=== PATIENT | male | born 1940 | race Caucasian/White ===

== ENCOUNTER 2025-04-12 16:55 | Outpatient (REF) | payer MEDICAID, SELFPAY ==
--- OUTSIDE RECORDS SUMMARY | 2025-04-12 16:59 | XMS_ITS | Encounter Summary ---
Author Organization [employer] s tem Address [facility] [place]-[id number] [address] [place] [address] Care Team Providers Care V Belt Skiver Name Role Phone Unavailable Primary Care Provider Unavailabl e Encounter Details Date Type Department Care Team (Late st Contact Info) Description 04/15/2023 Orders Only [facility] - Medical Oncology [address] [place] [phone] Ref Prov, [place] [address] Social History Tobacco Use Types Packs/Day Years Used Date Smoking Tobacco: Former Cigarettes 2.5 25 1 977 - 2002 Smokeless Tobacco: Never Comments:quite 19 years ago Alcohol Use Standard Drinks/Week Comments Yes 3 (1 standard drink = 0.6 oz pur e alcohol) AUDIT-C Answer Date Recorded Q1: How often do you have a drink containing alc ohol? Monthly or less 03/31/2023 Q2: How many drinks containi ng alcohol do you have on a typical day when you are drinking? 1 or 2 03/31/2023 Q3: How often do you have si x or more drinks on one occasion? Never 03/31/2023 PHQ-2 Answer Date Recorded Total Score 0 03/31/2023 Housing Instability Answer Date Recorde d Are you worried or concerned that in the next two months you may not have stable housing that you own, rent or stay in as a part of a household? No 02/28/2023 Childcare Answer Date Recorded Childcare Unknown 03/31/2019 Employment Answer Date Recorded Employment Unknown 03/31/2019 Hunger Screening Answer Date Recorded Within the past 12 months we worried whether our food would run out before we got money to buy more. Never True 03/30/2023 Within the past 12 months th e food we bought just didn't last and we didn't have money to get more. Never True 03/30/2023 Purpose - Life Answer Date Recorded Purpose and direction in life Unknown Sex and Gender Information Value Date Recorded Sex Assigned at Not on file Legal Sex Male 11:25 AM EDT Gender Identity Not on file Sexual Orientation Not on file documented as of this encounter Plan of Treatment Not on file documented as of this encounter Goals Goal Patient Goal Type Associated Problems Recent Progress Patient-Stated? Author SNF General Yes Aileen Lazaro, ALRON Note: Evaluation of progress towards goal: Patient plans to return to [facility] in [place] documented as of this encounter Procedures Procedure Name Priority Date/Time Associated Diagnosis Comments EXTERNAL LAB ORDERS / RESULTS Routine 04/15/2023 documented in this encounter Results * External Lab Orders / Results (04/15/2023) us Not In System Ref Prov LAB ORDERABLES Final Res ult documented in this encounter Visit Diagnoses Not on filedocumented in this encounter Additional Health Concerns Assessment Noted Time PHQ-9 Depression Total Score: 0 03/31/20 23 12:14 PM EDT A Body Mass Index follow-up plan has been documented for the patient 07/26/2019 4:41 PM EDT documented as of this encounter
--- OUTSIDE RECORDS SUMMARY | 2025-04-12 16:59 | XMS_ITS | Encounter Summary ---
Author Organization [facility] Address [address] [place] [address] Care Team Providers Care Business Center Manager Name Role Phone Yoshi Garvey MD Primary Care Provider [phone]- [phone] Encounter Details Date Type Department Care Team ([facility] st Contact Info) Description 09/03/2023 Orders Only [facility] [address] [place] [address] A, Unknown Practice [address] [place], [place] [id number] Social History Tobacco Use Types Packs/Day Years Used Date Smoking Tobacco: Never Assessed Sex and Gender Information Value Date Recorded Sex Assigned at Not on file Legal Sex Male 8:32 PM EDT Gender Identity Not on file Sexual Orientation Not on file documented as of this encounter Plan of Treatment Not on file documented as of this encounter Procedures Procedure Name Priority Date/Time Associated Diagnosis Comments SCANNED LABS Routine 08/27/2023 10:52 AM EDT documented in this encounter Results * SCANNED LABS (08/27/2023 10:52 AM EDT) us Unknown Practice A LAB CHG PERFORMABLES Final Re sult documented in this encounter Visit Diagnoses Not on filedocumented in this encounter Care Teams Business Center Manager Relationship Specialty Start Date End Date Yoshi Garvey MD PCP - General Family Medicine 05/10/23 documented as of this encounter
--- OUTSIDE RECORDS SUMMARY | 2025-04-12 16:59 | XMS_ITS | Referral Summary ---
Author Organization [facility] Address [address] [place] [address] Care Team Providers Care Racing Manager Name Role Phone Unavailable Primary Care Provider Unavailabl e Allergies No known active allergies Medications donepezil (Aricept) 5 mg tablet Take 5 mg by mouth in the morning. Active buPROPion XL (Wellbutrin XL) 300 mg 24 hr tablet Take 300 mg by mouth in the morning. Active atorvastatin (Lipitor) 20 mg tablet Take 20 mg by mouth in the morning. Active amiodarone (Pacerone) 200 mg tablet Take 200 mg by mouth in the morning. 10/16/2019 Active acetaminophen (Tylenol) 500 mg tablet Take 1,000 mg by mouth every 6 (six) hours if needed. Active eltrombopag (Promacta) 25 mg tablet Take 50 mg by mouth in the morning. 04/03/2023 Active cyanocobalamin (Vitamin B-12) 500 mcg tablet Take 500 mcg by mouth in the morning. Active simethicone (Mylicon) 80 mg chewable tablet Chew 80 mg every 6 (six) hours if needed for flatulence. Active pantoprazole (ProtoNix) 40 mg EC tabletIndications :History of Helicobacter pylori infection Take 1 tablet (40 mg) by mouth before breakfast. Do not crush, chew, or split. 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 08/11/2019 Nonischemic cardiomyopathy 08/11/2019 Class 1 obesity in adult 06/19/2019 Chronic combined systolic an d diastolic congestive heart failure 04/11/2019 Unspecified intellectual disabilities 04/04/2019 DENISSE (obstructive sleep apnea) 12/15/2018 Paroxysmal atrial fibrillation 12/15/2018 Hypertension 06/22/2018 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 0 05/17/2018 Overview (04/23/2023): problem replaced by 2018 ICD 10 August Update Acute pancreatitis 05/14/2018 Immunizations Immunization Administration Dates Next Due Influenza, seasonal, injecta ble, preservative free, 6 moonths & older 08/10/2016 Unspecified Sars-Cov-2 Vaccination 09/10/2021 Social History Tobacco Use Types Packs/Day Years Used Date Smoking Tobacco: Former Cigarettes Q uit: 2004 Tobacco Cessation:Counseling Given: Not Answered Alcohol Use Standard Drinks/Week Comments Yes 0 (1 standard drink = 0.6 oz pur e alcohol) [place] Safety & Environment Answer Date Rec orded Fear of Current or Ex-Partner Not on file Emotionally Abused Not on file 12/23/2023 Physically Abused Not on file 12/23/2023 Sexually Abused Not on file 12/23/2023 Physically or Sexually Abused Not on file Sex and Gender Information Value Date Recorded Sex Assigned at Not on file Legal Sex Male 12:00 AM EDT Gender Identity Not on file Sexual Orientation Not on file Last Filed Vital Signs Vital Sign Reading Time Taken Comments Blood Pressure 152/73 07/06/2023 8:57 AM EDT Pulse 62 07/06/2023 8:57 AM EDT Temperature - - Respiratory Rate - - Oxygen Saturation 93% 07/06/2023 8:57 AM EDT Inhaled Oxygen Concentration - - Weight 92.4 kg (203 lb 12.8 oz) 07/06/2023 8:57 AM EDT Height 180.3 cm (5' 11 ) 07/06/2023 8:57 AM EDT Body Mass Index 28.42 07/06/2023 8:57 AM EDT Plan of Treatment Not on file Insurance MEDICAID [place]
--- OUTSIDE RECORDS SUMMARY | 2025-04-12 16:59 | XMS_ITS | Encounter Summary ---
Author Organization [facility] tem Address [facility] [place]-[id number] [address] [place] [address] Care Team Providers Care Rawhide Trimmer Name Role Phone Yoshi Garvey MD Primary Care Provider [phone] Encounter Details Date Type Department Care Team (Late st Contact Info) Description 05/05/2019 Telephone [facility] - [facility] [address] [place] [phone] Linda Travis, LARON Social History Tobacco Use Types Packs/Day Years Used Date Smoking Tobacco: Former Cigarettes 2.5 25 Smokeless Tobacco: Never Comments:quite 19 years ago Alcohol Use Standard Drinks/Week Comments Not Currently 3 (1 standard drink = 0.6 oz pur e alcohol) AUDIT-C Answer Date Recorded Frequency of Alcohol Consumption Never 11/05/2018 Average Number of Drinks Not on file 019 Frequency of Binge Drinking Not on file 03/2019 PHQ-2 Answer Date Recorded PHQ-2 Score 0 10/24/2018 Childcare Answer Date Recorded Childcare Unknown 03/31/2019 Employment Answer Date Recorded Employment Unknown 03/31/2019 Sex and Gender Information Value Date Recorded Sex Assigned at Not on file Legal Sex Male 11:25 AM EDT Gender Identity Not on file Sexual Orientation Not on file documented as of this encounter Plan of Treatment Not on file documented as of this encounter Visit Diagnoses Not on filedocumented in this encounter Additional Health Concerns Assessment Noted Time PHQ-9 Depression Total Score: 0 04/24/20 19 2:00 PM EDT A Body Mass Index follow-up plan has been documented for the patient 12/15/2018 10:16 AM EST documented as of this encounter Care Teams Rawhide Trimmer Relationship Specialty Start Date End Date Yoshi Garvey MD [address] Provider retired 01/30/25 [place] [address] PCP - General Family Medicine 05/14/18 02/25/23 documented as of this encounter
--- OUTSIDE RECORDS SUMMARY | 2025-04-12 16:59 | XMS_ITS | Encounter Summary ---
Author Organization [employer] tem Address [facility] [place]-[id number] [address] [place] [address] Care Team Providers Care Ict Trainer Name Role Phone Unavailable Primary Care Provider Unavailabl e Encounter Details Date Type Department Care Team (Late st Contact Info) Description 05/13/2023 Orders Only [facility] - Medical Oncology [address] [place] [phone] Ref Prov, [place] [address] Social History Tobacco Use Types Packs/Day Years [...] Progress Patient-Stated? Author SNF General Yes Aileen Lazaro RN Note: Evaluation of progress towards goal: Patient plans to return to [facility] in [place] documented as of this encounter Visit Diagnoses Not on filedocumented in this encounter Additional Health Concerns Assessment Noted Time PHQ-9 Depression Total Score: 0 03/31/20 23 12:14 PM EDT A Body Mass Index follow-up plan has been documented for the patient 07/26/2019 4:41 PM EDT documented as of this encounter
--- OUTSIDE RECORDS SUMMARY | 2025-04-12 16:59 | XMS_ITS | Encounter Summary ---
Author Organization [facility] tem Address [facility] [id number] [address] [place] [address] Care Team Providers Care Practical Nursing Instructor Name Role Phone Yoshi Garvey MD Primary Care Provider [phone] Encounter Details Date Type Department Care Team (Late st Contact Info) Description 04/17/2019 Telephone [facility] - W[facility] Care [facility] [address] [place] [phone] Linda Travis, LARON Social History Tobacco Use [...] Noted Time PHQ-9 Depression Total Score: 0 03/24/20 19 2:00 PM EDT A Body Mass Index follow-up plan has been documented for the patient 12/15/2018 10:16 AM EST documented as of this encounter Care Teams Practical Nursing Instructor Relationship Specialty Start Date End Date Yoshi Garvey MD [address] Provider retired 01/30/25 [place] [address] PCP - General Family Medicine 05/14/18 02/25/23 documented as of this encounter
--- OUTSIDE RECORDS SUMMARY | 2025-04-12 16:59 | XMS_ITS | Encounter Summary ---
Author Organization [employer] s tem Address [facility] [id number] [address] [place] [address] Care Team Providers Care Alcohol Rubber Name Role Phone Unavailable Primary Care Provider Unavailabl e Encounter Details Date Type Department Care Team (Late st Contact Info) Description 05/03/2023 Telephone [facility] - Medical Oncology [address] [place] [address] Sanam Hernandez RN Social History Tobacco Use Types Packs/Day Years [...] on file documented as of this encounter Miscellaneous Notes * Telephone Encounter - Sanam Hernandez RN - 05/03/2023 12:28 PM EDT Images from the original note were not included. Romi Freire RN P [facility] Onc Nurses BRAD from [facility] called; they have not drawn patient labs yet, but do have order for STAT draw today, and will send results to us as soon as available documented in this encounter Plan of Treatment Not on file documented as of this encounter Goals Goal Patient Goal Type Associated Problems Recent Progress Patient-Stated? Author SNF General Yes Aileen Lazaro, LARON Note: Evaluation of progress towards goal: Patient plans to return to [facility] in [place] documented as of this encounter Visit Diagnoses Not on filedocumented in this encounter Additional Health Concerns Assessment Noted Time PHQ-9 Depression Total Score: 0 03/31/20 23 12:14 PM EDT A Body Mass Index follow-up plan has been documented for the patient 07/26/2019 4:41 PM EDT documented as of this encounter
--- OUTSIDE RECORDS SUMMARY | 2025-04-12 16:59 | XMS_ITS | Clinical Summary ---
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 0 05/17/2018 [...] 07/06/2023 8:57 AM EDT Plan of Treatment Health Maintenance Due Date Last Done Comments Depression Screening 1952 Pneumococcal Vaccine: 50+ Ye ars (1 of 2 - PCV) 1959 Adult Tetanus 1962 Zoster Vaccines (1 of 2) 1990 Fall Risk Screening 2005 COVID-19 Vaccine (2 - 2023-2 5 season) 2024 09/10/2021 Influenza Vaccine (Season Ended) 2025 08/10/20 16 HIB Vaccines Aged Out No longer eligi ble based on patient's age to complete this topic HPV Vaccines Aged Out No longer eligi ble based on patient's age to complete this topic IPV Vaccines Aged Out No longer eligi ble based on patient's age to complete this topic Meningococcal B Vaccine Aged Out No l onger eligible based on patient's age to complete this topic Meningococcal Vaccine Aged Out No cynthia johanna eligible based on patient's age to complete this topic Rotavirus Vaccines Aged Out No longer eligible based on patient's age to complete this topic Insurance MEDICAID [place]
--- OUTSIDE RECORDS SUMMARY | 2025-04-12 16:59 | XMS_ITS | Encounter Summary ---
Author Organization [employer] s tem Address [facility]-[id number] [address] [place] [address] Care Team Providers Care Board Setter Name Role Phone Unavailable Primary Care Provider Unavailabl e Encounter Details Date Type Department Care Team (Late st Contact Info) Description 10/22/2023 Orders Only [facility] - Medical Oncology [address] [place] [phone] Ref Prov, [place] [address] Social History Tobacco Use Types Packs/Day Years [...] towards goal: Patient plans to return to [facility] in [place] documented as of this encounter Procedures Procedure Name Priority Date/Time Associated Diagnosis Comments EXTERNAL LAB ORDERS / RESULTS Routine 10/22/2023 3:12 PM EST documented in this encounter Results * External Lab Orders / Results (10/22/2023 3:12 PM EST) us Not In System Ref Prov LAB [...]
--- OUTSIDE RECORDS SUMMARY | 2025-04-12 16:59 | XMS_ITS | Encounter Summary ---
Author Organization [facility] Address [address] [facility] [place] [address] Care Team Providers Care Imaging Specialist Name Role Phone Yoshi Garvey MD Primary Care Provider [phone] [phone] Encounter Details Date Type Department Care Team ([facility] Contact Info) Description 03/24/2023 Orders Only [facility] [address] [facility] [address] [place] [phone] Gal Chairez MD [address] [facility] [address] [place], [place] [phone] Social History Tobacco Use Types Packs/Day Years [...] Date/Time Associated Diagnosis Comments SCANNED LABS Routine 03/22/2023 1:13 PM EDT documented in this encounter Results * SCANNED LABS (03/22/2023 1:13 PM EDT) us Gal Chairez MD LAB CHG PERFORMABLES Final Res ult documented in this encounter Visit Diagnoses Not on filedocumented in this encounter Care Teams Imaging Specialist Relationship Specialty Start Date End Date Yoshi Garvey MD PCP - General Family Medicine 05/10/23 documented as of this encounter
--- OUTSIDE RECORDS SUMMARY | 2025-04-12 16:59 | XMS_ITS | Encounter Summary ---
Author Organization [facility] Address [address] [place] [address] Care Team Providers Care Pairer Odds Name Role Phone Yoshi Garvey MD Primary Care Provider [phone] Encounter Details Date Type Department Care Team ([facility] st Contact Info) Description 10/20/2023 Orders Only [facility] [address] [place] [address] A, Unknown Practice [address] [place], [place] [phone] Social History Tobacco Use Types Packs/Day Years [...] Date/Time Associated Diagnosis Comments SCANNED LABS Routine 10/20/2023 3:31 PM EST documented in this encounter Results * SCANNED LABS (10/20/2023 3:31 PM EST) us Unknown Practice A LAB CHG PERFORMABLES Final Re sult documented in this encounter Visit Diagnoses Not on filedocumented in this encounter Care Teams Pairer Odds Relationship Specialty Start Date End Date Yoshi Garvey MD PCP - General Family Medicine 05/10/23 documented as of this encounter
--- OUTSIDE RECORDS SUMMARY | 2025-04-12 16:59 | XMS_ITS | Encounter Summary ---
Author Organization [facility] tem Address [facility] [id number]-[id number] [address] [place] [address] Care Team Providers Care Liaison Officer Name Role Phone Yoshi Garvey MD Primary Care Provider [phone] Encounter Details Date Type Department Care Team (Late st Contact Info) Description 05/02/2019 Telephone [facility] - W[facility] Care [facility] [address] [place] [phone] Linda Travis, LARON Social History Tobacco Use [...] documented as of this encounter Care Teams Liaison Officer Relationship Specialty Start Date End Date Yoshi Garvey MD [address] Provider retired 01/30/25 [place] [address] PCP - General Family Medicine 05/14/18 02/25/23 documented as of this encounter
--- OUTSIDE RECORDS SUMMARY | 2025-04-12 16:59 | XMS_ITS | Encounter Summary ---
Author Organization [facility] Address [address] [facility] [place] [address] Care Team Providers Care Safety Representative Name Role Phone Yoshi Garvey MD Primary Care Provider [phone] Encounter Details Date Type Department Care Team ([facility] Contact Info) Description 04/15/2023 Orders Only [facility] [address] [facility] [address] [place] [address] Gal Chairez MD [address] [facility] [address] [place], [place] [id number] Social History Tobacco Use Types Packs/Day Years [...] Date/Time Associated Diagnosis Comments SCANNED LABS Routine 04/15/2023 2:11 PM EDT documented in this encounter Results * SCANNED LABS (04/15/2023 2:11 PM EDT) us Gal Chairez MD LAB CHG PERFORMABLES Final Res ult documented in this encounter Visit Diagnoses Not on filedocumented in this encounter Care Teams Safety Representative Relationship Specialty Start Date End Date Yoshi Garvey MD PCP - General Family Medicine 05/10/23 documented as of this encounter
--- OUTSIDE RECORDS SUMMARY | 2025-04-12 16:59 | XMS_ITS | Clinical Summary ---
Author Organization [facility] Address [address] [place] [address] Care Team Providers Care Packing Clerk Name Role Phone Unavailable Primary Care Provider Unavailabl e Allergies No known active allergies Medications amiodarone (CORDARONE) 200 MG tablet Take 1 tablet by mouth daily Active atorvastatin (LIPITOR) 20 MG tablet Take 1 tablet by mouth daily Active buPROPion (WELLBUTRIN XL) 300 MG extended release tablet Take 1 tablet by mouth every morning Active donepezil (ARICEPT) 5 MG tablet Take 1 tablet by mouth nightly Active ergocalciferol (ERGOCALCIFEROL ) 1.25 MG ([address] UT) capsule Take 1 capsule by mouth once a week Active pantoprazole (PROTONIX) 40 MG tablet Take 1 tablet by mouth daily Active simethicone (MYLICON) 80 MG chewable tablet Take 80 mg by mouth every 6 hours as needed for Flatulence Active acetaminophen (TYLENOL) 500 MG tablet Take 2 tablets by mouth every 6 hours as needed for Pain Active vitamin B-12 (CYANOCOBALAMIN ) 500 MCG tablet Take 1 tablet by mouth daily Active eltrombopag olamine (PROMACTA) 25 MG TABS tablet Take 2 tablets by mouth 3 Active glucose 4 g chewable tablet Take 1 tablet by mouth 3 times daily 60 tablet 2 3 Active Active Problems Problem Noted Date Diagnosed Date XANDER (acute kidney injury) 09/22/2023 Hypoglycemia 09/21/2023 Syncope and collapse 09/19/2023 Social History Tobacco Use Types Packs/Day Years Used Date Smoking Tobacco: Never Assessed Sex and Gender Information Value Date Recorded Sex Assigned at Not on file Legal Sex Male 1:24 PM EST Gender Identity Not on file Sexual Orientation Not on file Last Filed Vital Signs Vital Sign Reading Time Taken Comments Blood Pressure 132/73 09/22/2023 3:39 PM EST Pulse 59 09/22/2023 3:39 PM EST Temperature 37.1 C (98.8 F) 09/22/2023 3:39 PM EST Respiratory Rate 16 09/22/2023 3:39 PM EST Oxygen Saturation 94% 09/22/2023 3:39 PM EST Inhaled Oxygen Concentration - - Weight 95.4 kg (210 lb 5.1 oz) 09/19/2023 3:15 P M EST Height 180.3 cm (5' 11 ) 09/19/2023 9:36 AM EST Body Mass Index 29.33 09/19/2023 9:36 AM EST Plan of Treatment Health Maintenance Due Date Last Done Comments Lipids 1950 Depression Screen 1952 DTaP/Tdap/Td vaccine (1 - Tdap) 1959 Pneumococcal 50+ years Vacci ne (1 of 1 - PCV) 1990 Shingles vaccine (1 of 2) 1990 Respiratory Syncytial Virus (RSV) or age 60 yrs+ (1 - 1-dose 75+ series) 2015 COVID-19 Vaccine (4 - 2023-2 5 season) 2024 09/10/2021, 11/19/2020, 10/29/2020 Flu vaccine (Season Ended) 06/01/202508/09, 08/24/2022, 08/10/2016 Hepatitis A vaccine Aged Out No longe r eligible based on patient's age to complete this topic Hepatitis B vaccine Aged Out No longe r eligible based on patient's age to complete this topic Hib vaccine Aged Out No longer eligi ble based on patient's age to complete this topic Meningococcal (ACWY) vaccine Aged Out No longer eligible based on patient's age to complete this topic Meningococcal B vaccine Aged Out No l onger eligible based on patient's age to complete this topic Polio vaccine Aged Out No longer elig ible based on patient's age to complete this topic Insurance [place] Advance Directives * Full Code (Latest Code Status on File) Date Activated Date Inactivated Comments 09/19/2023 3:28 PM 09/22/2023 9:57 PM
--- OUTSIDE RECORDS SUMMARY | 2025-04-12 16:59 | XMS_ITS | Clinical Summary ---
Author Organization [facility] Address [address] [place] [address] Care Team Providers Care Tightening Machine Operator Name Role Phone Yoshi Garvey MD Primary Care Provider [phone] Social History Tobacco Use Types Packs/Day Years Used Date Smoking Tobacco: Never Assessed Sex and Gender Information Value Date Recorded Sex Assigned at Not on file Legal Sex Male 8:32 PM EDT Gender Identity Not on file Sexual Orientation Not on file Last Filed Vital Signs Vital Sign Reading Time Taken Comments Blood Pressure 120/72 11/18/2021 12:00 PM EST Pulse - - Temperature - - Respiratory Rate - - Oxygen Saturation - - Inhaled Oxygen Concentration - - Weight 85.3 kg (188 lb) 11/18/2021 12:00 PM EST Height 180.3 cm (5' 11 ) 11/18/2021 12:00 PM EST Body Mass Index 26.22 11/18/2021 12:00 PM EST Plan of Treatment Not on file Insurance MEDICAID [place] Care Teams Tightening Machine Operator Relationship Specialty Start Date End Date Yoshi Garvey MD PCP - General Family Medicine 05/10/23
--- OUTSIDE RECORDS SUMMARY | 2025-04-12 16:59 | XMS_ITS | Encounter Summary ---
Author Organization [employer] Address [id number] [address] [place] [address] Care Team Providers Care Senior Marketing Engineer Name Role Phone Unavailable Primary Care Provider Unavailabl e Encounter Details Date Type Department Care Team (Late st Contact Info) Description 06/07/2023 Orders Only [facility] [[email or web address] - Medical Oncology [address] [place] [address] Gal Chairez MD [address] [phone] Social History Tobacco Use Types Packs/Day Years [...] Patient-Stated? Author SNF General Yes Aileen Lazaro, RN Note: Evaluation of progress towards goal: Patient plans to return to [facility] in [place] documented as of this encounter Procedures Procedure Name Priority Date/Time Associated Diagnosis Comments MULTIPLE LABS Routine 06/02/2023 12:22 PM EDT documented in this encounter Results * Multiple labs (06/02/2023 12:22 PM EDT) us Gal Chairez MD [facility] Final Result documented in this encounter Visit Diagnoses Not on filedocumented in this encounter Additional Health Concerns Assessment Noted Time PHQ-9 Depression Total Score: 0 03/31/20 23 12:14 PM EDT A Body Mass Index follow-up plan has been documented for the patient 07/26/2019 4:41 PM EDT documented as of this encounter
--- OUTSIDE RECORDS SUMMARY | 2025-04-12 16:59 | XMS_ITS | Encounter Summary ---
Author Organization [facility] tem Address [id number] [address] [place] [address] Care Team Providers Care Skid Road Man Name Role Phone Yoshi Garvey MD Primary Care Provider [phone] Encounter Details Date Type Department Care Team (Late st Contact Info) Description 04/25/2019 Telephone [facility] [address] [place] [phone] Linda Travis, LARON Social History Tobacco Use [...] documented as of this encounter Care Teams Skid Road Man Relationship Specialty Start Date End Date Yoshi Garvey MD [address] Provider retired 01/30/25 [place] [address] PCP - General Family Medicine 05/14/18 02/25/23 documented as of this encounter
--- OUTSIDE RECORDS SUMMARY | 2025-04-12 16:59 | XMS_ITS | Clinical Summary ---
Author Organization [employer] Address [id number] [address] [place] [address] Care Team Providers Care Admissions Manager Name Role Phone Unavailable Primary Care Provider Unavailabl e Allergies No known active allergies Medications buPROPion XL (WELLBUTRIN XL) 300 mg 24 hr tablet Take 1 tablet (300 mg total) by mouth in the morning. Active atorvastatin (LIPITOR) 20 mg tablet Take 1 tablet (20 mg total) by mouth nightly. Active amiodarone (PACERONE) 200 mg tablet Take 1 tablet (200 mg total) by mouth daily. 90 tablet 3 10/16/20 19 Active acetaminophen (TYLENOL) 500 mg tablet Take 2 tablets (1,000 mg total) by mouth every 6 (six) hours as needed for pain or fever. Active donepeziL (ARICEPT) 5 mg tablet Take 1 tablet (5 mg total) by mouth nightly. Active SIMETHICONE ORAL Take 80 mg by mouth every 12 (twelve) hours as needed for flatulence. Active pantoprazole (PROTONIX) 40 mg EC tablet Take 1 tablet (40 mg total) by mouth every morning before breakfast. 02/13/20 23 Active eltrombopag (PROMACTA) 25 mg tabletIndications:Ac quechan idiopathic thrombocytopenic purpura (CMS-HCC) Take 2 tablets (50 mg total) by mouth in the morning. Administer on an empty stomach, 1 hour before or 2 hours after a meal.. 04/03/20 23 Active cyanocobalamin 500 MCG tablet Take 1 tablet (500 mcg total) by mouth in the morning. Active ergocalciferol (DRISDOL) 1,250 mcg (50,000 unit) capsule Take 1 capsule (50,000 Units total) by mouth once a week. Active furosemide (LASIX) 20 mg tablet Take 1 tablet (20 mg total) by mouth daily. 10/31/20 24 Active levothyroxine (SYNTHROID, LEVOTHROID) 75 MCG tablet Take 1 tablet (75 mcg total) by mouth in the morning. 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 08/11/2019 Class 1 obesity in adult 06/19/2019 Chronic HFrEF (heart failure with reduced ejection fraction) 04/11/2019 Unspecified intellectual disabilities 04/04/2019 DENISSE (obstructive sleep apnea) 12/15/2018 Paroxysmal atrial fibrillation 12/15/2018 Hypertension 06/22/2018 snf current use of anticoagulant therapy 0 05/17/2018 Overview (08/01/2018): problem replaced by 2018 ICD 10 August Update Pancreatitis 05/14/2018 Acute pancreatitis 05/14/2018 Resolved Problems Problem Noted Date Diagnosed Date Resolved Date GI bleed 02/04/2023 02/11/2023 Permanent atrial fibrillation 05/17/2018 06/07/2020 Encounters Date Type Department Care Team Description 02/05/2025 10:30 AM EDT Office Visit [facility] - Medical Oncology [address] [place] [address] Mare Christensen, AUTOMATION TECHNICIAN-PRODUCTION QUALITY MANAGER Acute idiopathic thrombocytopenic purpura (CMS-HCC) (Primary Dx); Normocytic anemia; Immune thrombocytopenia (CMS-HCC); snf current use of anticoagulant therapy; Thrombocytopenia; High risk medication use 02/05/2025 Travel from Last 3 Months Immunizations Immunization Administration Dates Next Due COVID-19, mRNA, LNP-S, PF, 30mcg/0.3mL Dose 09/01 Influenza (IM) Preservative Free 08/10/2016 Family History Medical History Relation Name Comments Heart attack Father Heart attack Mother Relation Name Status Comments Father Mother Social History Tobacco Use Types Packs/Day Years Used Date Smoking Tobacco: Former Cigarettes 2.5 25 1 977 - 2001 Smokeless Tobacco: Never Comments:quite 19 years ago [...] got money to buy more. Never True 02/10/2024 Within the past 12 months th e food we bought just didn't last and we didn't have money to get more. Never True 02/10/2024 Purpose - Life Answer Date Recorded Purpose and direction in life Unknown Sex and Gender Information Value Date Recorded Sex Assigned at Not on file Legal Sex Male 11:25 AM EDT Gender Identity Not on file Sexual Orientation Not on file Last Filed Vital Signs Vital Sign Reading Time Taken Comments Blood Pressure 145/68 02/05/2025 10:29 AM EDT Pulse 62 02/05/2025 10:29 AM EDT Temperature 36.4 C (97.5 F) 02/05/2025 10:29 AM EDT Respiratory Rate 18 02/05/2025 10:2 9 AM EDT Oxygen Saturation 98% 02/05/2025 10: 29 AM EDT Inhaled Oxygen Concentration - - Weight 102.2 kg (225 lb 6.4 oz) 025 10:29 AM EDT Height 180.3 cm (5' 10.98 ) 02/05/2025 10:29 AM EDT Body Mass Index 31.45 02/05/2025 10:29 AM EDT Plan of Treatment Health Maintenance Due Date Last Done Comments DTaP,Tdap and Td Vaccines (1 - Tdap) 1959 Zoster (Shingles) Vaccine (1 of 2) 1990 Fall Risk Screening 2005 Depression Screening 03/31/2024 03/31/2023 COVID-19 Vaccine (5 - 2023-2 5 season) 2024 09/10/2021, 03/31/2021, 11/19/2020, Additional history exists Influenza Vaccine 07/02/2025 08/10/2016 Tobacco Screening 02/05/2026 02/05/2025 Goals Goal Patient Goal Type Associated Problems Recent Progress Patient-Stated? Author SNF General Yes Aileen Lazaro, RN Note: Evaluation of progress towards goal: Patient plans to return to [facility] in [facility] Not on file Insurance [place]ICAID [place] Advance Directives Documents on File Type Date Recorded Patient Formula Room Worker Expl anation Advance Directive 02/25/2023 10:00 AM Full Code - travel papers from facility * Full Code (Latest Code Status on File) Date Activated Date Inactivated Comments 03/31/2023 1:02 PM 04/03/2023 4:17 PM * Full Code Date Activated Date Inactivated Comments 02/28/2023 2:49 AM 02/28/2023 4:35 PM * Full Code Date Activated Date Inactivated Comments 02/25/2023 9:39 PM 02/28/2023 12:28 AM * Full Code Date Activated Date Inactivated Comments 02/04/2023 11:43 AM 02/11/2023 6:24 PM * Full Code Date Activated Date Inactivated Comments 04/11/2019 7:45 AM 04/15/2019 2:03 AM
--- OUTSIDE RECORDS SUMMARY | 2025-04-12 16:59 | XMS_ITS | Encounter Summary ---
Author Organization [employer] Address [id number] [address] [place] [address] Care Team Providers Care Ton Container Shipper Name Role Phone Unavailable Primary Care Provider Unavailabl e Encounter Details Date Type Department Care Team (Late st Contact Info) Description 05/15/2024 Orders Only [facility] - Medical Oncology [address] [place] [phone] Ref Prov, [place] [address] Social History Tobacco Use Types Packs/Day Years [...] towards goal: Patient plans to return to [facility] in [place] documented as of this encounter Procedures Procedure Name Priority Date/Time Associated Diagnosis Comments EXTERNAL LAB ORDERS / RESULTS Routine 05/15/2024 4:10 PM EDT documented in this encounter Results * External Lab Orders / Results (05/15/2024 4:10 PM EDT) us Not In System Ref Prov LAB [...]
--- OUTSIDE RECORDS SUMMARY | 2025-04-12 16:59 | XMS_ITS | Encounter Summary ---
Author Organization [facility] Address [address] [place] [address] Care Team Providers Care Inspector General Name Role Phone Yoshi Garvey MD Primary Care Provider [phone]- [phone] Encounter Details Date Type Department Care Team ([facility] st Contact Info) Description 04/28/2023 Orders Only [facility] [address] [facility] [place] [phone] A, Unknown Practice [address] [place], [place] [phone] Social History Tobacco Use Types Packs/Day Years [...] Date/Time Associated Diagnosis Comments SCANNED LABS Routine 04/26/2023 8:37 AM EDT documented in this encounter Results * SCANNED LABS (04/26/2023 8:37 AM EDT) us Unknown Practice A LAB CHG PERFORMABLES Final Re sult documented in this encounter Visit Diagnoses Not on filedocumented in this encounter Care Teams Inspector General Relationship Specialty Start Date End Date Yoshi Garvey MD PCP - General Family Medicine 05/10/23 documented as of this encounter
--- OUTSIDE RECORDS SUMMARY | 2025-04-12 16:59 | XMS_ITS | Encounter Summary ---
Author Organization [facility] Address [address] [facility] [place] [place] [address] Care Team Providers Care Auto Inspector Name Role Phone Yoshi Garvey MD Primary Care Provider [phone] Encounter Details Date Type Department Care Team ([facility] Contact Info) Description 04/16/2023 Orders Only [facility] [address] [facility] [address] [place] [phone] Gal Chairez MD [address] [facility] [address] [place], [place] [phone] Social History Tobacco Use Types Packs/Day Years [...] Date/Time Associated Diagnosis Comments SCANNED LABS Routine 04/06/2023 10:04 AM EDT documented in this encounter Results * SCANNED LABS (04/06/2023 10:04 AM EDT) us Gal Chairez MD LAB CHG PERFORMABLES Final Res ult documented in this encounter Visit Diagnoses Not on filedocumented in this encounter Care Teams Auto Inspector Relationship Specialty Start Date End Date Yoshi Garvey MD PCP - General Family Medicine 05/10/23 documented as of this encounter
--- OUTSIDE RECORDS SUMMARY | 2025-04-12 16:59 | XMS_ITS | Encounter Summary ---
Author Organization [employer] Address [facility] [place] [id number] [address] [place] [address] Care Team Providers Care Charting Clerk Name Role Phone Unavailable Primary Care Provider Unavailabl e Encounter Details Date Type Department Care Team (Late st Contact Info) Description 11/02/2023 Orders Only [facility] - Medical Oncology [address] [place] [phone] Ref Prov, [place] [address] Social History Tobacco Use Types Packs/Day Years [...] towards goal: Patient plans to return to [facility] in [place] documented as of this encounter Procedures Procedure Name Priority Date/Time Associated Diagnosis Comments EXTERNAL LAB ORDERS / RESULTS Routine 11/02/2023 4:04 PM EST documented in this encounter Results * External Lab Orders / Results (11/02/2023 4:04 PM EST) us Not In System Ref [...]
--- OUTSIDE RECORDS SUMMARY | 2025-04-12 16:59 | XMS_ITS | Encounter Summary ---
Author Organization [facility] Address [address] [facility] [place] [address] Care Team Providers Care Customer Training Specialist Name Role Phone Yoshi Garvey MD Primary Care Provider [phone] Encounter Details Date Type Department Care Team ([facility] Contact Info) Description 06/10/2023 Orders Only [facility] [address] [facility] [address] [place] [phone] Gal Chairez MD [address] [facility] [address] [place], [place] [phone] Social History Tobacco Use Types Packs/Day Years [...] Date/Time Associated Diagnosis Comments SCANNED LABS Routine 06/03/2023 4:04 PM EDT documented in this encounter Results * SCANNED LABS (06/03/2023 4:04 PM EDT) us Gal Chairez MD LAB CHG PERFORMABLES Final Res ult documented in this encounter Visit Diagnoses Not on filedocumented in this encounter Care Teams Customer Training Specialist Relationship Specialty Start Date End Date Yoshi Garvey MD PCP - General Family Medicine 05/10/23 documented as of this encounter
--- OUTSIDE RECORDS SUMMARY | 2025-04-12 16:59 | XMS_ITS | Encounter Summary ---
Author Organization [employer] Address [id number] [address] [place] [address] Care Team Providers Care Practice Managers Name Role Phone Unavailable Primary Care Provider Unavailabl e Encounter Details Date Type Department Care Team (Late st Contact Info) Description 08/20/2023 Orders Only Jess [facility] - Medical Oncology [address] [place] [address] Gal Chairez MD [address] [phone] Social History Tobacco Use Types Packs/Day Years [...] Patient plans to return to [facility] in [place] [address] documented as of this encounter Procedures Procedure Name Priority Date/Time Associated Diagnosis Comments EXTERNAL LAB ORDERS / RESULTS Routine 08/20/2023 8:39 AM EDT documented in this encounter Results * External Lab Orders / Results (08/20/2023 8:39 AM EDT) us Gal Chairez MD LAB ORDERABLES Final Result documented in this encounter Visit Diagnoses Not on filedocumented in this encounter Additional Health Concerns Assessment Noted Time PHQ-9 Depression Total Score: 0 03/31/20 23 12:14 PM EDT A Body Mass Index follow-up plan has been documented for the patient 07/26/2019 4:41 PM EDT documented as of this encounter
--- OUTSIDE RECORDS SUMMARY | 2025-04-12 16:59 | XMS_ITS | Encounter Summary ---
Author Organization [employer] Address [facility] [place]-[id number] [address] [place] [address] Care Team Providers Care Distilling Department Supervisor Name Role Phone Unavailable Primary Care Provider Unavailabl e Encounter Details Date Type Department Care Team (Late st Contact Info) Description 04/29/2023 Orders Only [facility] - Medical Oncology [address] [place] [phone] Ref Prov, [place] [address] Social History Tobacco Use Types Packs/Day Years [...] towards goal: Patient plans to return to [facility] in [place] documented as of this encounter Procedures Procedure Name Priority Date/Time Associated Diagnosis Comments EXTERNAL LAB ORDERS / RESULTS Routine 04/29/2023 documented in this encounter Results * External Lab Orders / Results (04/29/2023) us Not In System Ref Prov LAB [...]
--- OUTSIDE RECORDS SUMMARY | 2025-04-12 16:59 | XMS_ITS | Encounter Summary ---
Author Organization [employer] Address [id number] [address] [place] [address] Care Team Providers Care Athletic Turf Worker Name Role Phone Unavailable Primary Care Provider Unavailabl e Encounter Details Date Type Department Care Team (Late st Contact Info) Description 07/19/2023 Orders Only [facility] - Medical Oncology [address] [place] [phone] Ref Prov, [place] [address] Social History Tobacco Use Types Packs/Day Years [...] towards goal: Patient plans to return to [facility] in [place] documented as of this encounter Procedures Procedure Name Priority Date/Time Associated Diagnosis Comments MULTIPLE LABS Routine 07/19/2023 8:33 AM EDT documented in this encounter Results * Multiple labs (07/19/2023 8:33 AM EDT) us Not In System Ref Prov [facility] IMAGING Final Res ult documented in this encounter Visit Diagnoses Not on filedocumented in this encounter Additional Health Concerns Assessment Noted Time PHQ-9 Depression Total Score: 0 03/31/20 23 12:14 PM EDT A Body Mass Index follow-up plan has been documented for the patient 07/26/2019 4:41 PM EDT documented as of this encounter
[2025-04-12 17:31] LABS: Basophils Absolute Auto 0.1 10^3/uL (0.0-0.1); Basophils Percent Auto 1.3 % (0.2-2.0); Eosinophils Absolute Auto 0.1 10^3/uL (0.0-0.7); Eosinophils Percent Auto 2.3 % (0.9-7.0); Hematocrit 39.4 % (42.0-54.0); Immature Granulocytes Abs Auto 0.02 10^3/uL (0.00-0.03); Immature Granulocytes Pct Auto 0.4 % (0.0-0.5); Lymphocytes Absolute Auto 1.4 10^3/uL (1.2-3.8); Mean Corpuscular HGB Conc 30.5 g/dL (29.9-35.2); Mean Corpuscular Hemoglobin 27.6 pg (25.9-34.0); Mean Corpuscular Volume 90.8 fL (80.0-94.0); Mean Platelet Volume 11.2 fL (9.5-13.5); Monocytes Absolute Auto 0.7 10^3/uL (0.3-0.8); Monocytes Percent Auto 12.8 % (1.7-12.0); Neutrophils Percent Auto 56.2 % (43.0-75.0); Platelet Count 385 10^3/uL (150-450); Red Blood Count 4.34 10^6/uL (4.70-6.10); Red Cell Distribution Width 17.1 % (11.0-15.0); White Blood Count 5.3 10^3/uL (4.0-11.0)
[2025-04-12 18:02] LABS: Anion Gap 15.2; BUN Creatinine Ratio 15.3; Carbon Dioxide 29.1 mmol/L (21.0-32.0); Chloride 104 mmol/L (98-107); Estimated GFR (African America 51 (>=60 mL/min/1.73m^2); Estimated GFR (Non-African Ame 42 (>=60 mL/min/1.73m^2); Glucose 105 mg/dL (74-106); Potassium 4.3 mmol/L (3.5-5.1); Sodium 144 mmol/L (136-145)
== END 2025-04-12 16:56 | disposition home or self-care (01) ==
LOC: LAB 16:55
PROVIDERS: PCP Internal Medicine; Visit Provider Internal Medicine
DX: D64.9 Anemia, unspecified (principal)
CPT/HCPCS: 36415; 80048; 85025